=== PATIENT | female | born 1990 | race Caucasian/White ===

== ENCOUNTER 2020-09-05 11:04 | Emergency (ER) | payer SELFPAY ==
[~2020-09-05] VITALS: Ht 154.9 cm; Wt 73.6 kg
[~2020-09-05 11:04] MED LIST: DOCU-131 PO; FERR325T17 PO; IBUP-1222 PO; OXYC1TAB14 PO
--- NOTE | 2020-09-05 11:55 | NUR ---
TASK RN: THIS IS A 29 YO F W/ C/O HEADACHE W/ SENSITIVITY TO LIGHT AND MOVEMENT X1 WEEK. PT RESTING ON [employer] W/ CALL LIGHT IN REACH AND SIDE RAILS UPX2. RESP EVEN AND UNLABORED, TAJ.
[2020-09-05] MEDS ORDERED: SODIUM CHLORIDE FLUSH 10ML SYR IVF ONE (12:00)
[2020-09-05] MEDS ORDERED: KETOROLAC 30 MG/1 ML IVPush ONE (12:00)
[2020-09-05] MEDS ORDERED: HYDROmorphone 2 MG/ML, 1ML IVPush PRN (12:00)
--- NOTE | 2020-09-05 12:01 | NUR ---
TASK RN: PIV STARTED. VSS. MRI IN ROOM TO TAKE PT FOR EXAM.
[2020-09-05] MEDS ORDERED: GADOTERATE 7.5 MMOL/15 ML VIAL ONE (12:19)
[2020-09-05 12:22] LABS: ALBUMIN 3.8 g/dL (3.4-5.0); ANION GAP 4 mmol/L (5-15); CALCIUM 8.8 mg/dL (8.5-10.1); CHLORIDE 110 mmol/L (98-107); CREATININE 0.96 mg/dL (0.55-1.02)
[2020-09-05 12:23] LABS: BASOPHILS % (AUTO) 0 % (0-1); EOSINOPHILS % (AUTO) 4 % (1-7); LYMPHOCYTES % (AUTO) 33 % (22-44); MEAN CORPUSCULAR HEMOGLOBIN 31.7 pg (27.0-34.8); MEAN CORPUSCULAR HGB CONC 33.9 g/dL (32.4-35.8); MEAN PLATELET VOLUME 9.9 fL (7.4-10.4); MONOCYTES % (AUTO) 8 % (2-9); NEUTROPHILS % (AUTO) 54 % (42-75); PLATELET COUNT 234 x10^3/uL (130-400); RED BLOOD COUNT 4.24 x10^6/uL (3.82-5.3); RED CELL DISTRIBUTION WIDTH 12.9 % (9.6-15.2)
[2020-09-05 12:28] LABS: MD NO
--- NOTE | 2020-09-05 12:46 | NUR ---
TASK RN: PT STILL IN MRI.
[2020-09-05] MEDS ORDERED: KETOROLAC 30 MG/1 ML ONE (14:01)
[2020-09-05 14:06] VITALS: BP 119/85
[2020-09-05] MEDS ORDERED: DIPHENHYDRAMINE 50 MG/ML, 1ML IVPush ONE (14:30)
[2020-09-05] MEDS ORDERED: BUTORPHANOL 1 MG/ML, 1ML IVPush PRN (14:30)
[2020-09-05] MEDS ORDERED: PROCHLORPERAZINE 5 MG/ML, 2ML IVPush ONE (14:30)
--- NOTE | 2020-09-05 14:43 | NUR ---
Pt states she will establish care with a PCP and follow up with neurology. States "I really just wanted to make sure I didn't have an aneurysm and that I wasn't dying. I've been managing the pain at home for a week, I don't want to be filled with meds." Pt educated about her rights and pt chose to be discharged. Pt given d/c instructions and rx med resources.
[2020-09-05] MEDS ORDERED: BUTORPHANOL 2 MG/ML IVPush PRN (15:00)
== END 2020-09-05 14:44 | disposition home or self-care (01) ==
LOC: ED 11:46
DX: G44.209 Tension-type headache, unspecified, not intractable (principal); M54.2 Cervicalgia; Z88.0 Allergy status to penicillin
CPT/HCPCS: 36415; 70553; 72156; 80048; 82040; 85025; 96374; 99285; A9575; J1885